=== PATIENT | female | born 1955 | race African-American/Black ===

== ENCOUNTER 2024-07-30 19:08 | Emergency (ER) | payer OTHER ==
[~2024-07-30] VITALS: Ht 172.7 cm; Wt 96.0 kg
[~2024-07-30 19:08] MED LIST: DILT90TA
[2024-07-30 19:23] VITALS: BP 158/82; PULSE 73; RESP 22; TEMP 37.1; O2SAT 98
== END 2024-07-30 19:51 | disposition left against medical advice (07) ==
LOC: ER 19:08
DX: I10 Essential (primary) hypertension (principal); Z53.21 Procedure and treatment not carried out due to patient leaving prior to being seen by health care provider
CPT/HCPCS: 93005

== ENCOUNTER 2025-01-13 13:16 | Emergency (ER) | payer OTHER ==
[~2025-01-13] VITALS: Ht 157.5 cm; Wt 82.0 kg
[2025-01-13 13:18] VITALS: O2SAT 98
[2025-01-13 15:41] LABS: BASOPHILS % 0.3 % (0.0-2.0); EOSINOPHILS % 0.6 % (0.0-5.0); HEMATOCRIT. 41.6 % (36.0-48.0); HEMOGLOBIN. 13.4 g/dL (12.0-16.0); LYMPHOCYTES % 23.4 % (20.0-50.0); MEAN PLATELET VOLUME 7.8 fl (7.4-10.4); MONOCYTES % 6.9 % (2.0-8.0); NEUTROPHILS % 68.8 % (40.0-76.0); PLATELET 184 x1000/uL (130-400); RED BLOOD CELL COUNT 4.89 mill/uL (4.2-5.4); RED CELL DISTRIBUTION WIDTH 15.1 % (11.6-14.6)
[2025-01-13 16:09] LABS: CREATININE 1.1 mg/dL (0.6-1.0); TROPONIN I HIGH SENSITIVITY 20 ng/L (3.0-34); UREA NITROGEN BLOOD 7 mg/dL (9-23)
[2025-01-13 16:11] LABS: ASPARTATE AMINOTRANSFERASE 21 IU/L (<34); BILIRUBIN DIRECT 0.2 mg/dL (<=3.0); BILIRUBIN TOTAL 0.6 mg/dL (0.1-1.0); PROTEIN TOTAL 7.3 g/dL (6.0-8.3)
[2025-01-13 16:21] LABS: T4 FREE 1.33 ng/dL (0.89-1.76)
[2025-01-13 17:38] LABS: TROPONIN I HIGH SENSITIVITY 19 ng/L (3.0-34)
[2025-01-13 17:41] LABS: CLARITY URINE CLEAR (CLEAR); COLOR URINE YELLOW (YELLOW); GLUCOSE URINE NEGATIVE (NEGATIVE); KETONES URINE NEGATIVE (NEGATIVE); LEUKOCYTE ESTERASE URINE 1+ (NEGATIVE); NITRITE URINE NEGATIVE (NEGATIVE); OCCULT BLOOD URINE NEGATIVE (NEGATIVE); PH URINE 6.5 (4.5-8.0); PROTEIN URINE NEGATIVE (NEGATIVE); SPECIFIC GRAVITY URINE 1.007 (1.005-1.030); UROBILINOGEN URINE 0.2 E.U./dL (0.2-1.0)
[2025-01-13 17:43] LABS: BACTERIA URINE TRACE; RBC URINE 0-2 /hpf (0-2); SQUAMOUS EPITHELIAL CELL URINE FEW /lpf (RARE/1+)
[2025-01-13 19:20] VITALS: BP 150/85; PULSE 69; RESP 14; TEMP 36.7; O2SAT 98
== END 2025-01-13 19:40 | disposition short-term general hospital (02) ==
LOC: ER 13:16 → CMPBEDREQ 01-14 19:26
DX: R55 Syncope and collapse (principal); E78.00 Pure hypercholesterolemia, unspecified; E03.9 Hypothyroidism, unspecified; I10 Essential (primary) hypertension; Z79.899 Other long term (current) drug therapy
CPT/HCPCS: 80076; 80048; 81003; 83880; 84439; 84443; 85025; 85379; 84484; 36415; 71045; 93005; 99285; Z7610 ×2